=== PATIENT | female | born 1995 | race Two or more races ===

== ENCOUNTER 2021-02-10 16:09 | Emergency (ER) | payer OTHER ==
[~2021-02-10] VITALS: Ht 160 cm; Wt 60.0 kg
[2021-02-10] MEDS ORDERED: LORazepam 2 MG/ML, 1ML ONE (16:16)
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
[2021-02-10] MEDS ORDERED: PLEASE ENTER ALLERGIES MC SCH (16:30)
[2021-02-10] MEDS ORDERED: LORazepam 2 MG/ML, 1ML IM ONE (16:30)
[2021-02-10] MEDS ORDERED: PLEASE ENTER HEIGHT AND WEIGHT MC SCH (16:30)
[2021-02-10] MEDS ORDERED: ZIPRASIDONE 20 MG INJ IM ONE ×2 (16:33→17:30)
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
--- NOTE | 2021-02-10 16:58 | NUR ---
PT ATTACHED TO ALL MONITORS. TACHY CARDIC IN 115'S. OTHER VSS. PT STARING AT THIS RN MUTTERING "FUCK YOU STUPID BITCH" AND SAYING "WHY DON'T YOU DO IT" MEDICATED PER EMAR.
[2021-02-10 17:36] LABS: BASOPHILS % (AUTO) 1 % (0-1); EOSINOPHILS % (AUTO) 0 % (1-7); LYMPHOCYTES % (AUTO) 41 % (22-44); MD NO; MEAN CORPUSCULAR HEMOGLOBIN 33.4 pg (27.0-34.8); MEAN CORPUSCULAR HGB CONC 33.8 g/dL (32.4-35.8); MEAN PLATELET VOLUME 9.1 fL (7.4-10.4); MONOCYTES % (AUTO) 3 % (2-9); NEUTROPHILS % (AUTO) 55 % (42-75); PLATELET COUNT 212 x10^3/uL (130-400); RED BLOOD COUNT 4.42 x10^6/uL (3.82-5.3); RED CELL DISTRIBUTION WIDTH 13.3 % (9.6-15.2)
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
[2021-02-10 17:45] LABS: ALANINE AMINOTRANSFERASE 23 U/L (12-78); ALBUMIN 4.2 g/dL (3.4-5.0); ANION GAP 6 mmol/L (5-15); CALCIUM 8.2 mg/dL (8.5-10.1); CHLORIDE 111 mmol/L (98-107); CREATININE 0.67 mg/dL (0.55-1.02); SALICYLATE LEVEL < 1.7 mg/dL (2.8-20.0)
[2021-02-10 17:50] LABS: ALKALINE PHOSPHATASE 56 U/L (45-117); BILIRUBIN,TOTAL 0.3 mg/dL (0.2-1.0)
--- NOTE | 2021-02-10 18:03 | NUR ---
PT ASLEEP WITH EVEN AND UNLABORED RESPIRATIONS. TWO RESTRAINTS REMOVED. NOW RESTRAINT ON LUE AND RLE
--- NOTE | 2021-02-10 18:19 | NUR ---
RESTRAINTS REMOVED. PT ASLEEP. CONTINIOUS PULSE OX. VSS. MTF
--- NOTE | 2021-02-10 19:01 | NUR ---
BEDSIDE REPORT FROM MAIKEL HICKEYAIR DISPATCHER OF CARE
--- NOTE | 2021-02-10 19:18 | NUR ---
PT STILL SLEEPING, MOM AND FRIEND AT BEDSIDE.
--- NOTE | 2021-02-10 20:02 | NUR ---
PT CONTINUES TO REST ON BENJY GARCIA AT BEDSIDE
--- NOTE | 2021-02-10 20:54 | NUR ---
PT STILL SLEEPING SOUNDLY AT THIS TIME, RESP EVEN AND UNLABORED.
--- NOTE | 2021-02-10 21:50 | NUR ---
PT STILL SLEEPING ON GURBRUNILDA, NADN, RESP EVEN AND UNLABORED
[2021-02-10 23:02] VITALS: BP 120/74
--- NOTE | 2021-02-10 23:02 | NUR ---
PT NOW AWAKE AND AMBULATORY ASKING FOR BELONGINGS. STS SHE IS READY TO LEAVE. PT CALLING FAMILY FOR RIDE HOME FOR SAFE DC.
== END 2021-02-10 23:04 | disposition home or self-care (01) ==
LOC: ED 19:56
DX: F19.159 Other psychoactive substance abuse with psychoactive substance-induced psychotic disorder, unspecified (principal); F10.20 Alcohol dependence, uncomplicated; R41.82 Altered mental status, unspecified; R00.0 Tachycardia, unspecified; Y90.0 Blood alcohol level of less than 20 mg/100 ml
CPT/HCPCS: 36415; 80053; 80299; 80320; 80329; 84443; 84703; 85025; 96372; 99285; J2060; G0480